=== PATIENT | female | born 1965 | race Caucasian/White ===

== ENCOUNTER → 2020-04-20 09:39 | Outpatient (CLI) | payer OTHER, SELFPAY ==
--- NOTE | 2020-04-20 | DI.RAD.S_ITS ---
PROCEDURE: XR CERVICAL SPINE 2V OR 3V INDICATIONS: Bilat Arm numbness and tingling TECHNIQUE: 3 view(s) of the cervical spine were acquired. COMPARISON: None. FINDINGS: Bones: No fractures or dislocations to the T1 level. The lateral masses of C1 appear intact on the odontoid view. No suspicious bony lesions. Soft tissues: No prevertebral soft tissue swelling. IMPRESSION: Minimal degenerative disc disease is seen at C6-7, without subluxation. No trauma found. Depending on the clinical status followup by MR scanning may become necessary. Dictated by: Deandre Gray M.D. on 04/20/2020 at 10:23 Approved by: Deandre Gray M.D. on 04/20/2020 at 10:24
== END ==
PROVIDERS: Referring Provider Family Medicine; Visit Provider Family Medicine
DX: R20.0 Anesthesia of skin (principal); R20.2 Paresthesia of skin; M54.2 Cervicalgia
CPT/HCPCS: 72040

== ENCOUNTER → 2020-10-30 10:43 | Outpatient (CLI) | payer OTHER, SELFPAY ==
--- NOTE | 2020-10-30 | DI.RAD.S_ITS ---
PROCEDURE: XR SHOULDER RT MIN 2V INDICATIONS: RIGHT SHOULDER PAIN TECHNIQUE: 3 views of the shoulder were acquired. COMPARISON: None. FINDINGS: Bones: No fractures or dislocations. No suspicious bony lesions. Visualized ribs appear intact. Soft tissues: No suspicious soft tissue calcifications. IMPRESSION: No acute radiographic findings. If there is continued pain, followup exam or additional imaging such as MRI or CT could be performed for further assessment. Dictated by: Lita Botello M.D. on 10/30/2020 at 14:36 Approved by: Lita Botello M.D. on 10/30/2020 at 14:37
== END ==
PROVIDERS: PCP Family Medicine; Referring Provider Family Medicine; Visit Provider Family Medicine
DX: M25.511 Pain in right shoulder (principal); G89.29 Other chronic pain
CPT/HCPCS: 73030

== ENCOUNTER → 2020-11-28 15:50 | Outpatient (CLI) | payer OTHER, SELFPAY ==
--- NOTE | 2020-11-28 15:55 | DI.MRI.S_ITS ---
PROCEDURE: MR SHOULDER RT WO CON INDICATIONS: RIGHT SHOULDER INJURY TECHNIQUE: Noncontrast oblique coronal T2 fast spin echo with fat saturation, oblique sagittal T1 spin echo and T2 fast spin echo with fat saturation, axial T1 spin echo and T2 fast spin echo with fat saturation through the shoulder. COMPARISON: [facility], CR, XR SHOULDER RT MIN 2V, 10/30/2020, 10:57. FINDINGS: Image quality: Excellent. Rotator cuff: There is moderate supraspinatus and infraspinatus tendinosis. Additionally, there is low-grade intrasubstance tearing of the supraspinatus tendon measuring approximately 5 mm in anterior-posterior dimension. The teres minor tendon is intact. There is mild subscapularis tendinosis. The rotator cuff muscles demonstrate no significant atrophy. Bones and bursae: Trabecular bone injury is seen in the anterior aspect of the greater tuberosity adjacent to the supraspinatus tendon insertion with a superimposed small 8 mm incomplete fracture line. Mild osteophytic ridging is seen in the glenoid rim. Mild to moderate degenerative changes are seen at the acromioclavicular joint. Small glenohumeral joint effusion is seen. There is a moderate size subacromial/subdeltoid bursal effusion or bursitis. Capsule and soft tissues: A small nondisplaced tear is seen in the posterosuperior labrum. No paralabral cyst is identified. The long head of the biceps tendon demonstrates normal location and morphology. There is partial effacement of the normal fat in the rotator interval. The inferior glenohumeral ligament is normal in thickness. IMPRESSION: 1. Small incomplete fracture at the greater tuberosity is most likely related to traction from the supraspinatus tendon insertion. There is mild surrounding trabecular bone injury. 2. Low-grade partial intrasubstance tearing of the supraspinatus tendon at the distal insertion measuring 5 mm in anterior-posterior dimension superimposed on moderate supraspinatus and infraspinatus tendinosis. There is mild subscapularis tendinosis. 3. Small nondisplaced tear of the posterosuperior labrum. 4. Mild to moderate acromioclavicular joint osteoarthrosis. 5. Moderate subacromial/subdeltoid bursal effusion or bursitis. Dictated by: Shankar Frederick M.D. on 11/28/2020 at 17:12 Approved by: Shankar Frederick M.D. on 11/28/2020 at 17:19
== END ==
PROVIDERS: PCP Family Medicine; Referring Provider Family Medicine; Visit Provider Family Medicine
DX: S42.251A Displaced fracture of greater tuberosity of right humerus, initial encounter for closed fracture (principal); M19.011 Primary osteoarthritis, right shoulder; X58.XXXA Exposure to other specified factors, initial encounter
CPT/HCPCS: 73221

== ENCOUNTER → 2021-11-28 15:05 | Outpatient (CLI) | payer OTHER, SELFPAY ==
--- NOTE | 2021-11-28 16:01 | PM.TREADMILL ---
Cardiac Stress Test Report Referral & Results Date Patient Seen: 11/28/21 Time Patient Seen: 16:01 Requesting provider: Yo Chatman Indication: chest pain Rest ECG: sinus rhythm Procedure Note: Standard Emanuel protocol, 9:38, 9.6 METS Good exercise capacity, JOSÉ -34% Normal hemodynamic response to exercise; max predicted HR achieved No chest pain or anginal symptoms No significant ECG changes at peak exercise No ectopy Impression: Normal exercise stress test Please note: Actual ECG tracings can be found in the PACS system.
--- NOTE | 2021-11-29 19:09 | DI.NM.S_ITS ---
DATE OF SERVICE: 11/28/2021 PROCEDURE: Exercise stress test. INDICATION: Chest pain and palpitation. CARDIAC STRESS: The patient underwent exercise stress test under the supervision of an attending staff. The patient walked on Emanuel protocol for 9 minutes and 38 seconds, achieved a maximum heart rate of 164, which was 101 percent of target heart rate. Baseline blood pressure 96/60. Peak blood pressure 162/90 mmHg. The patient achieved 10.1 METs of workload and functional aerobic impairment -34 percent. Baseline rhythm was sinus. During stress, no convincing ischemic changes or significant arrhythmias seen. No anginal symptoms. CONCLUSION: 1. Exercise stress test is negative for inducible ischemia. 2. Normal hemodynamic response. 3. No significant arrhythmias. 4. No anginal symptoms. 5. Excellent exercise tolerance with JOSÉ -34 percent. 6. Overall low-risk study. IndiraFebruary CAMRON/apolinar/lc doc#: [id number]/job#: [id number] dd: 11/29/2021 16:35:00 dt: 11/29/2021 18:22:00 DICTATING /COPIES TO: Oliver White MD COPIES MNE: CECIL;
== END ==
PROVIDERS: PCP Family Medicine; Referring Provider Internal Medicine Cardiovascular Disease; Visit Provider Internal Medicine Cardiovascular Disease
DX: R07.9 Chest pain, unspecified (principal); R07.81 Pleurodynia; R00.2 Palpitations
CPT/HCPCS: 93017

== ENCOUNTER → 2023-03-05 08:22 | Outpatient (CLI) | payer OTHER, SELFPAY ==
[2023-03-05 19:33] LABS: Add Manual Diff / Slide Review NO; Basophils Absolute Auto 0 /uL (0-100); Basophils Percent Auto 0.5 % (0-2); Eosinophils Absolute Auto 100 /uL (0-450); Eosinophils Percent Auto 2.1 % (2-4); Hematocrit 39.9 % (36-46); Hemoglobin 13.5 g/dL (12.0-16.0); Lymphocytes Absolute Auto 1500 /uL (1100-4500); Lymphocytes Percent Auto 37.7 % (25-40); Mean Corpuscular HGB Conc 33.8 % (30-36); Mean Corpuscular Hemoglobin 30.6 PG (26-34); Mean Corpuscular Volume 90.4 fL (80-100); Monocytes Absolute Auto 300 /uL (0-900); Monocytes Percent Auto 7.5 % (3-14); Neutrophils Absolute Auto 2000 /uL (1500-7000); Neutrophils Percent Auto 52.2 % (50-75); Platelet Count 258 X10^3/uL (150-400); Red Blood Cell Count 4.41 X10^6/uL (4.0-5.2); Red Cell Distribution Width 12.4 % (11.6-14.8); White Blood Cell Count 3.9 X10^3/uL (4.5-11.0)
[2023-03-05 19:45] LABS: Alanine Aminotransferase 18 IU/L (<35); Albumin 4.2 g/dL (3.5-5.0); Albumin Globulin Ratio 1.4 (1.0-2.8); Alkaline Phosphatase 52 U/L (38-126); Aspartate Aminotransferase 26 IU/L (14-36); BUN Creatinine Ratio 23.9 (6-22); Bilirubin Total 1.2 mg/dL (0.2-1.3); Blood Urea Nitrogen 16 mg/dL (7-17); C-Reactive Protein Quant < 0.5 mg/dL (<1.0); Calcium 9.5 mg/dL (8.4-10.2); Carbon Dioxide 33 mmol/L (22-32); Chloride 100 mmol/L (98-107); Cholesterol 243 mg/dL (140-199); Estimated Glomerular Filt Rate > 60 mL/min (>60); Globulin 3.1 g/dL (1.7-4.1); Glucose 88 mg/dL (70-100); HDL Cholesterol 70 mg/dL (40-60); HEMOLYSIS < 15 (0-50); LDL Cholesterol Calculated 160 mg/dL (<100); Potassium 4.6 mmol/L (3.4-5.1); Sodium 137 mmol/L (137-145); Total Protein 7.3 g/dL (6.3-8.2); Triglycerides 63 mg/dL (35-150)
[2023-03-05 19:50] LABS: Rheumatoid Factor < 8.6 IU/mL (<12.0)
[2023-03-05 20:09] LABS: TSH w/ Reflex to FT4 3.21 uIU/mL (0.47-4.68)
[2023-03-05 20:53] LABS: Erythrocyte Sedimentation Rate 7 MM/HR (0-20)
[2023-03-10 20:08] LABS: ANA Screen, IFA Negative (.)
== END ==
PROVIDERS: PCP Family Medicine; Visit Provider Physician Assistant Medical
DX: E78.5 Hyperlipidemia, unspecified (principal); K11.7 Disturbances of salivary secretion; M19.90 Unspecified osteoarthritis, unspecified site; M25.611 Stiffness of right shoulder, not elsewhere classified; M54.2 Cervicalgia
CPT/HCPCS: 80053; 80061; 84443; 85025; 85651; 86038; 86140; 86430